=== PATIENT | male | born 1965 | race Caucasian/White ===

== ENCOUNTER → 2017-03-16 | Outpatient (CLI) | payer OTHER ==
--- NOTE | 2017-03-16 14:34 | EST ---
EXERCISE STRESS AGE: 51 SEX: M HT: 71" WT: 185 PROTOCOL: Marcus Stress Test STAGE: I DURATION OF EXERCISE: 4:31 HEART RATE REST: 114 BLOOD PRESSURE REST: 160/103 MAXIMUM HEART RATE ACHIEVED: 157 MAXIMUM BLOOD PRESSURE: 174/110 85% MPHR: 142 100% MPHR: 167 METS: 6.1 INDICATIONS: Chest pain. CLINICAL INFORMATION: Baseline heart rate 114 beats per minute. Baseline blood pressure 160/103 mmHg. Baseline 12-lead ECG showed sinus tachycardia with no definite ST T abnormalities. Patient exercised on a Marcus protocol for 4-1/2 minutes achieving a peak heart rate of 157 beats per minute. Peak blood pressure 174/110 mmHg. Patient complained of low back pain during the procedure. There was no ECG evidence for ischemia. No arrhythmias were noted. IMPRESSION: Low workload level achieved during stress test. No ECG evidence for ischemia. No arrhythmias. MMODL / IJN: [id number] /
== END | disposition home or self-care (01) ==
LOC: RADNMMAIN 10:25
PROVIDERS: ATTEND Internal Medicine
DX: R07.9 Chest pain, unspecified (principal); Z88.0 Allergy status to penicillin
CPT/HCPCS: 93017

== ENCOUNTER → 2021-08-28 | Outpatient (CLI) | payer OTHER ==
[2021-08-28 15:05] LABS: Basophils # (A) 0.06 X 10*3/uL (0.00-0.10); Basophils % (A) 0.7 %; Eosinophils # (A) 0.17 X 10*3/uL (0.04-0.35); HCT 41.5 % (39.6-50.0); HGB 13.9 g/dL (13.0-17.0); Immature Grans, Automated 0.2 %; Lymphocytes # (A) 3.15 X 10*3/uL (0.90-5.00); Lymphocytes % (A) 37.4 %; MCH 28.7 pg (27.0-32.0); MCHC 33.5 g/dL (32.0-37.0); MCV 85.6 fL (80.0-97.0); Mean Platelet Volume 12.2 fL (9.5-12.2); Monocytes # (A) 0.64 X 10*3/uL (0.20-1.00); Monocytes % (A) 7.6 %; NRBC Per 100 WBC 0 /100 WBCS (0.0-0.0); Neutrophils # (A) 4.39 X 10*3/uL (1.80-7.70); Neutrophils % (A) 52.1 %; Platelet Count 185 X 10*3/uL (140-440); RBC 4.85 X 10*6/uL (4.40-5.60); RDW 14.5 % (11.5-14.5); WBC 8.43 X 10*3/uL (4.50-10.00)
[2021-08-28 15:43] LABS: ALT 35 U/L (10-49); AST 27 U/L (14-35); African American GFR (CKD) 69.7 (60.0-200.0); Albumin 4.6 g/dL (3.8-4.9); Albumin/Globulin Ratio 1.84 (1.60-3.17); Alkaline Phosphatase 100 U/L (41-126); BUN/Creat Ratio 16.77 Ratio (12.00-20.00); Blood Urea Nitrogen 21.8 mg/dL (9.0-27.0); Calcium 9.5 mg/dL (8.7-10.3); Carbon Dioxide 22.3 mmol/L (20.0-27.5); Chloride 103 mmol/L (96-109); Chol/HDL Ratio 4.89 Ratio; Globulin 2.5 g/dL (1.6-3.3); Glucose 144 mg/dL (70-110); Non-African American GFR(CKD) 60.1 (60.0-200.0); Potassium 3.8 mmol/L (3.5-5.5); Sodium 141 mmol/L (135-145); Total Protein 7.1 g/dL (6.2-8.2)
== END | disposition home or self-care (01) ==
LOC: LABWHC1 10:52
PROVIDERS: ATTEND Family Medicine
DX: Z00.00 Encounter for general adult medical examination without abnormal findings (principal); Z12.5 Encounter for screening for malignant neoplasm of prostate; Z11.59 Encounter for screening for other viral diseases; E78.5 Hyperlipidemia, unspecified
CPT/HCPCS: 36415; 80053; 80061; 83036; 84153; 84439; 84443; 85025; 86803

== ENCOUNTER → 2021-12-04 | Outpatient (CLI) | payer OTHER ==
[2021-12-04 18:59] LABS: Basophils # (A) 0.05 X 10*3/uL (0.00-0.10); Basophils % (A) 0.6 %; Eosinophils % (A) 1.3 %; HGB 13.7 g/dL (13.0-17.0); Immature Grans, Automated 0.3 %; Lymphocytes # (A) 3.01 X 10*3/uL (0.90-5.00); Lymphocytes % (A) 38.6 %; MCHC 34.3 g/dL (32.0-37.0); MCV 87.7 fL (80.0-97.0); Mean Platelet Volume 12.7 fL (9.5-12.2); Monocytes # (A) 0.63 X 10*3/uL (0.20-1.00); Monocytes % (A) 8.1 %; NRBC Per 100 WBC 0 /100 WBCS (0.0-0.0); Neutrophils # (A) 3.99 X 10*3/uL (1.80-7.70); Neutrophils % (A) 51.1 %; Platelet Count 193 X 10*3/uL (140-440); RBC 4.56 X 10*6/uL (4.40-5.60); RDW 14.5 % (11.5-14.5)
[2021-12-04 19:18] LABS: ALT 35 U/L (10-49); AST 32 U/L (14-35); African American GFR (CKD) 68.4 (60.0-200.0); Albumin 4.6 g/dL (3.8-4.9); Alkaline Phosphatase 94 U/L (41-126); BUN/Creat Ratio 10.23 Ratio (12.00-20.00); Blood Urea Nitrogen 13.5 mg/dL (9.0-27.0); Calcium 9.6 mg/dL (8.7-10.3); Carbon Dioxide 24.9 mmol/L (20.0-27.5); Chloride 100 mmol/L (96-109); Chol/HDL Ratio 4.15 Ratio; Globulin 2.5 g/dL (1.6-3.3); Glucose 130 mg/dL (70-110); LDL Cholesterol,Calculated 68.5 mg/dL (0.0-131.0); Potassium 3.7 mmol/L (3.5-5.5); Sodium 138 mmol/L (135-145); Total Protein 7.1 g/dL (6.2-8.2)
== END | disposition home or self-care (01) ==
LOC: LABWHC1 11:32
PROVIDERS: ATTEND Family Medicine
DX: I10 Essential (primary) hypertension (principal); E11.65 Type 2 diabetes mellitus with hyperglycemia; E78.5 Hyperlipidemia, unspecified
CPT/HCPCS: 36415; 80053; 80061; 83036; 84439; 84443; 85025

== ENCOUNTER → 2022-02-19 | Outpatient (CLI) | payer OTHER ==
[2022-02-19 23:14] LABS: African American GFR (CKD) 69.7 (60.0-200.0); Albumin 4.6 g/dL (3.8-4.9); Albumin/Globulin Ratio 1.53 (1.60-3.17); Anion Gap 11.8 mmol/L (10.00-18.00); BUN/Creat Ratio 19.77 Ratio (12.00-20.00); Blood Urea Nitrogen 25.7 mg/dL (9.0-27.0); Calcium 10.3 mg/dL (8.7-10.3); Carbon Dioxide 24.2 mmol/L (20.0-27.5); Non-African American GFR(CKD) 60.1 (60.0-200.0); Potassium 3.7 mmol/L (3.5-5.5); Total Bilirubin 0.2 mg/dL (0.30-1.20); Total Protein 7.6 g/dL (6.2-8.2)
== END | disposition home or self-care (01) ==
LOC: LABWHC1 16:35
PROVIDERS: ATTEND Family Medicine
DX: E11.65 Type 2 diabetes mellitus with hyperglycemia (principal)
CPT/HCPCS: 36415; 80053; 83036

== ENCOUNTER → 2022-08-22 | Outpatient (CLI) | payer OTHER ==
[2022-08-23 08:12] LABS: Basophils # (A) 0.09 X 10*3/uL (0.00-0.10); Eosinophils # (A) 0.19 X 10*3/uL (0.04-0.35); Eosinophils % (A) 2.1 %; HCT 41.6 % (39.6-50.0); Lymphocytes # (A) 2.39 X 10*3/uL (0.90-5.00); Lymphocytes % (A) 26.4 %; MCH 29.3 pg (27.0-32.0); MCHC 33.7 d/dL (32.0-37.0); Mean Platelet Volume 12.7 FL (9.5-12.2); Monocytes % (A) 6.6 %; NRBC Per 100 WBC 0 X 10*3/uL (0.00-0.01); Neutrophils # (A) 5.77 X 10*3/uL (1.80-7.70); Neutrophils % (A) 63.6 %; Platelet Count 255 X 10*3/uL (140-440); RBC 4.78 X 10*6/uL (4.40-5.60); RDW 12.6 % (11.5-14.5); WBC 9.07 X 10*3/uL (4.50-10.00)
[2022-08-23 08:28] LABS: ALT 23 U/L (10-49); AST 16 U/L (14-35); Albumin 4.2 d/dL (3.8-4.9); Albumin/Globulin Ratio 1.56 Ratio (1.60-3.17); Alkaline Phosphatase 125 U/L (41-126); Blood Urea Nitrogen 14.3 mg/dL (9.0-27.0); Calcium 10.1 mg/dL (8.7-10.3); Carbon Dioxide 27.1 mmol/L (21.6-31.8); Chloride 93 mmol/L (96-109); Chol/HDL Ratio 4.89 Ratio; Globulin 2.7 d/dL (1.6-3.3); Glucose 361 mg/dL (70-110); LDL Cholesterol,Calculated 48.3 mg/dL (0.0-131.0); Potassium 4.2 mmol/L (3.5-5.5); Sodium 133 mmol/L (135-145); Total Bilirubin 0.4 mg/dL (0.3-1.2); Total Protein 6.9 d/dL (6.2-8.2)
[2022-08-23 09:58] LABS: Urine Creatinine 24.3 mg/dL (39.0-259.0)
== END | disposition home or self-care (01) ==
LOC: LABWHC1 11:25
PROVIDERS: ATTEND Family Medicine
DX: Z12.5 Encounter for screening for malignant neoplasm of prostate (principal); E11.65 Type 2 diabetes mellitus with hyperglycemia
CPT/HCPCS: 36415; 80053; 80061; 82043; 82570; 83036; 84153; 85025

== ENCOUNTER 2022-08-28 09:09 | Emergency (ER) | payer OTHER ==
--- NOTE | 2022-08-28 09:41 | ED ---
ENT HPI - General Chief complaint: Dental/Oral Stated complaint: dental pain Time Seen by Provider: 08/28/22 09:19 Source: patient, RN notes reviewed Mode of arrival: ambulatory Limitations: no limitations - History of Present Illness Initial comments: This is a 57-year-old male who presents to the emergency department for dental pain. Patient states that 2.5 weeks ago, he started to develop an abscess from the teeth in the front of his lower jaw. States that this usually happens about once a year but resolves on its own. This time, the swelling persisted and he saw his dentist. His dentist had him on clindamycin that he essentially doubled the dose of for 2 weeks. He took his last dose yesterday. His dentist also tried to drain it and was able to express some material. However, the patient states that this abscess continues to persist. He is unable to see the oral surgeon until 11/11, however he was told by oral surgery that they would not manage the abscess, and only pull his teeth, which he does not want. While the area is tender to the touch, he is still able to eat without difficulty. He is only treating his pain with ibuprofen at this point, which has not been very helpful. Denies any fevers, chills, sore throat, cough, dyspnea, chest pain, palpitations, abdominal pain, nausea, vomiting, diarrhea, back pain, or headaches. MD complaint: tooth pain Onset/Timin -: week(s) - Related Data Home Medications Medication Instructions Recorded Confirmed Azithromycin [Zithromax Z-pack] 1 tab PO DIRECTED 12/11/14 12/13/14 Cyclobenzaprine [Flexeril] 10 mg PO DAILY@0000,1200 12/11/14 12/11/14 HYDROcodone/APAP 7.5-325MG [[place] 1 each PO DIRECTED PRN 12/11/14 12/13/14 7.5-325] Losartan Potassium 100 mg PO DAILY@12/11/14 12/13/14 Meloxicam [Mobic] 7.5 mg PO DAILY@1200,0000 12/11/14 12/13/14 Metoprolol 100mg 100 mg PO DAILY@0000 12/11/14 12/11/14 Omeprazole [PriLOSEC] 20 mg PO DAILY@0000 12/11/14 12/11/14 amLODIPine [Norvasc] 10 mg PO DAILY@0000 12/11/14 12/13/14 Previous Rx's Medication Instructions Recorded Ketorolac [Toradol] 10 mg PO Q6HR PRN #12 tab 08/28/22 Allergies Allergy/AdvReac Type Severity Reaction Status Date / Time Penicillins AdvReac Severe Swelling Verified 08/28/22 09:16 Review of Systems ROS Statement: Those systems with pertinent positive or pertinent negative responses have been documented in the HPI. ROS Other: All systems not noted in ROS Statement are negative. 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 PT TO NOTIFY DR CASTILLO IF NOT IMPROVED BY TOMORROW 12/12/14. History of Any Multi-Drug Resistant Organisms: None Reported Past Surgical History: No Surgical Hx Reported Additional Past Anesthesia/Blood Transfusion Reaction / Comment(s): PT HAS NEVER RECEIVED ANESTHESIA. Past Psychological History: No Psychological Hx Reported Smoking Status: Current every day smoker Past Alcohol Use History: Daily Past Drug Use History: None Reported - Past Family History Father Family Medical History: Cancer Additional Family Medical History / Comment(s): MELANOMA General Exam Limitations: no limitations General appearance: alert, in no apparent distress Head exam: Present: atraumatic, normocephalic, normal inspection ENT exam: Present: other (Palpable dental abscess to the teeth on the left front side of his lower jaw) Respiratory exam: Present: normal lung sounds bilaterally. Absent: respiratory distress, wheezes, rales, rhonchi, stridor Cardiovascular Exam: Present: regular rate, normal rhythm, normal heart sounds. Absent: systolic murmur, diastolic murmur, rubs, gallop, clicks Neurological exam: Present: alert, oriented X3, CN II-XII intact Psychiatric exam: Present: normal affect, normal mood Skin exam: Present: warm, dry, intact, normal color. Absent: rash Course Vital Signs 08/28/22 08/28/22 09:10 11:12 Temperature 98.3 F 97.9 F Pulse Rate 85 74 Respiratory 20 16 Rate Blood Pressure 137/87 138/91 O2 Sat by Pulse 99 98 Oximetry Procedures - Incision & Drainage Consent Obtained: verbal consent Indication: Dental abscess Scalpel Used: #11 Needle Aspiration Performed?: No Irrigation Performed?: Yes I&D Drainage Obtained: Pus, Blood Medical Decision Making - Medical Decision Making This is a 57-year-old male who presents to the emergency department for dental pain. Was pt. sent in by a medical professional or institution? @ -No Did you speak to anyone other than the patient for history? @ -No Did you review nursing and triage notes? @ -Yes, and I agree, it is accurate with regards to the patient's symptoms. Were old charts reviewed? @ -No Differential Diagnosis? @ -Differential Dental Pain: Dental abscess, chipped tooth, dental carries, dede's angina, trigeminal neuralgia, this is not meant to be an all-inclusive list. EKG interpreted by me (3pts min.)? @ -Not obtained X-rays interpreted by me (1pt min.)? @ -Not obtained CT interpreted by me (1pt min.)? @ -Not obtained U/S interpreted by me (1pt. min.)? @ -Not obtained What testing was considered but not performed? (CT, X-rays, U/S, labs)? Why? @ -None What meds were considered but not given? Why? @ -None Did you discuss the management of the patient with other professionals? @ -No Did you reconcile home meds? @ -No Was smoking cessation discussed for >3mins.? @ -No Was critical care preformed (if so, how long)? @ -No Were there social determinants of health that impacted care today? How? (Homelessness, low income, unemployed, alcoholism, drug addiction, transportation, low edu. Level, literacy, decrease access to med. care, [facility], rehab)? @ -No Was there de-escalation of care discussed even if they declined? (Discuss DNR or withdrawal of care, Hospice)? @ -No What co-morbidities impacted this encounter? (DM, HTN, Smoking, COPD, CAD, Cancer, CVA, Hep., AIDS, mental health diagnosis, sleep apnea, morbid obesity)? @ -None Was patient admitted / discharged? @ -Discharged. There was a somewhat palpable abscess on exam with purulent drainage coming around one of the teeth. Hurricane spray was applied as a local anesthetic and I was able to lightly stick the area with an 11 blade and express some more purulent drainage. However, the majority of the abscess was much deeper and I advised the patient that given the depth of the larger portion of the abscess, this is not something that we can drain in the emergency department. 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 Advised that because this is a dental abscess, I am not sure if this is something they would do, however he can contact them to discuss this. Prescription for Toradol provided with dosing instructions reviewed. Advised that he can see if this is more beneficial than ibuprofen has been. Patient is instructed to take the Toradol with Tylenol if needed and avoid any other [id number] anti-inflammatories such as ibuprofen with the Toradol. Undiagnosed new problem with uncertain prognosis? @ -None Drug Therapy requiring intensive monitoring for toxicity (Heparin, Nitro, Insulin, Cardizem)? @ -None Were any procedures done? @ -Yes I&D of dental abscess Diagnosis/symptom? @ -Dental abscess Acute, or Chronic, or Acute on Chronic? @ -Acute Uncomplicated (without systemic symptoms) or Complicated (systemic symptoms)? @ -Uncomplicated Side effects of treatment? @ -None Exacerbation, Progression, or Severe Exacerbation] @ -Not applicable Poses a threat to life or bodily function? @ -No Return precautions reviewed in depth, the patient is instructed to return to the emergency department with any new, worsening, or concerning symptoms. Patient verbalized understanding. This case was discussed in detail with the attending ED physician, Dr. Armstrong. Presentation, findings, and treatment plan discussed in detail as well. Disposition Clinical Impression: Dental abscess Disposition: HOME SELF-CARE Instructions (If sedation given, give patient instructions): Dental Abscess (ED) Additional Instructions: Return to the emergency department with any new, worsening, or concerning symptoms. Take the Toradol up to every 6 hours as needed for pain relief. Take this instead of the ibuprofen. You may take it with Tylenol if needed. Follow up with your primary care provider in 1-2 days. Contact dermatology as listed below for a follow up appointment. Prescriptions: Ketorolac [Toradol] 10 mg PO Q6HR PRN #12 tab PRN Reason: Pain Is patient prescribed a controlled substance at d/c from ED?: No Referrals: Ravinder Gomez MD [Primary Care Provider] - 1-2 days Quincy Gill MD [STAFF PHYSICIAN] - 1-2 days
[2022-08-28] MEDS ORDERED: BENZOCAINE SPRAY 1 CAN MUCOUS MEM ONE ×2 (09:47→10:00)
[2022-08-28] MEDS ORDERED: HYDROcodone/APAP 5-325MG 1 EACH TAB PO STA (10:11)
[2022-08-28] MEDS ORDERED: KETOROLAC 15 MG/ML 1 ML VIAL IM STA (10:11)
[2022-08-28] MEDS ORDERED: ACET/COD 300 MG/30 MG STARTER PACK 6 TAB BTL PO STA (10:18)
[2022-08-28 11:15] VITALS: BP 138/91; PULSE 74; RESP 16; TEMP 97.9
== END 2022-08-28 11:15 | disposition home or self-care (01) ==
LOC: EC 09:09
DX: K04.7 Periapical abscess without sinus (principal); I10 Essential (primary) hypertension; F17.200 Nicotine dependence, unspecified, uncomplicated; Z79.899 Other long term (current) drug therapy; Z88.0 Allergy status to penicillin
CPT/HCPCS: 99283; 96372; 10060; J1885

== ENCOUNTER → 2023-03-01 | Outpatient (CLI) | payer OTHER ==
[2023-03-01 16:44] LABS: ALT 20 U/L (10-49); AST 18 U/L (14-35); Albumin 4.4 g/dL (3.8-4.9); Albumin/Globulin Ratio 1.69 Ratio (1.60-3.17); Alkaline Phosphatase 94 U/L (41-126); BUN/Creat Ratio 17.92 Ratio (12.00-20.00); Blood Urea Nitrogen 23.3 mg/dL (9.0-27.0); Calcium 10.2 mg/dL (8.7-10.3); Carbon Dioxide 25.1 mmol/L (21.6-31.8); Chloride 102 mmol/L (96-109); Globulin 2.6 g/dL (1.6-3.3); Glucose 111 mg/dL (70-110); Potassium 4.1 mmol/L (3.5-5.5); Sodium 140 mmol/L (135-145); Total Bilirubin 0.3 mg/dL (0.3-1.2)
== END | disposition home or self-care (01) ==
LOC: LABWHC1 08:44
PROVIDERS: ATTEND Family Medicine
DX: E11.65 Type 2 diabetes mellitus with hyperglycemia (principal)
CPT/HCPCS: 36415; 80053; 83036

== ENCOUNTER 2023-11-22 10:53 | Emergency (ER) | payer OTHER ==
[2023-11-22 11:01] VITALS: RESP 16; TEMP 97.9
[2023-11-22 11:11] LABS: Glucose,Whole Blood 128 mg/dL (70-110)
--- NOTE | 2023-11-22 11:57 | XR ---
EXAMINATION TYPE: XR chest 2V DATE OF EXAM: 11/22/2023 11:52 AM CLINICAL INDICATION: Male, 58 years old with history of Dizziness; [facility] COMPARISON: None TECHNIQUE: XR chest 2V Frontal view of the chest. FINDINGS: Lungs/Pleura: There is no evidence of pleural effusion, focal consolidation, or pneumothorax. Pulmonary vascularity: Unremarkable. Heart/mediastinum: Cardiomediastinal silhouette is unremarkable. Musculoskeletal: No acute osseous pathology. IMPRESSION: No acute cardiopulmonary disease/process.
[2023-11-22 12:15] LABS: ALT 17 U/L (4-49); AST 23 U/L (17-59); African American GFR (CKD) 67 (>60 ml/min/1.73 sqM); Albumin 3.9 g/dL (3.5-5.0); Alkaline Phosphatase 70 U/L (38-126); Anion Gap 6 mmol/L; Blood Urea Nitrogen 15 mg/dL (9-20); Calcium 9.2 mg/dL (8.4-10.2); Carbon Dioxide 27 mmol/L (22-30); Chloride 105 mmol/L (98-107); Glucose 121 mg/dL (74-99); Non-African American GFR(CKD) 58 (>60 ml/min/1.73 sqM); Potassium 3.9 mmol/L (3.5-5.1); Sodium 138 mmol/L (137-145); Total Bilirubin 0.5 mg/dL (0.2-1.3); Total Protein 6.6 g/dL (6.3-8.2)
[2023-11-22 12:16] LABS: Basophils # (A) 0.1 k/uL (0-0.2); Basophils % (A) 1 %; Eosinophils # (A) 0.2 k/uL (0-0.7); Eosinophils % (A) 3 %; HCT 39.5 % (39.0-53.0); HGB 12.8 gm/dL (13.0-17.5); INR 0.9 (<1.2); Lymphocytes # (A) 2.5 k/uL (1.0-4.8); Lymphocytes % (A) 33 %; MCH 27.5 pg (25.0-35.0); MCHC 32.6 g/dL (31.0-37.0); MCV 84.5 fL (80.0-100.0); Mean Platelet Volume 9.3; Monocytes % (A) 13 %; Neutrophils # (A) 3.5 k/uL (1.3-7.7); Neutrophils % (A) 46 %; Platelet Count 209 k/uL (150-450); Prothrombin Time 10.1 sec (10.0-12.5); RBC 4.67 m/uL (4.30-5.90); RDW 14.9 % (11.5-15.5); WBC 7.6 k/uL (3.8-10.6)
[2023-11-22] MEDS: SODIUM CHLORIDE 0.9% 1,000 ML IV STA (12:20)
--- NOTE | 2023-11-22 12:20 | ED ---
Recheck HPI - General Chief Complaint: Recheck/Abnormal Lab/Rx Stated Complaint: EKG done PCP referral Time Seen by Provider: 11/22/23 11:14 Source: patient, RN notes reviewed Mode of arrival: ambulatory Limitations: no limitations - History of Present Illness Initial Comments: This is a 58-year-old male who presents to the emergency department for an ab normal EKG. States that 2 days ago he had an episode of dizziness lasting around 30 seconds to a minute. States that this was like a room spinning sensation. Denies any shortness of breath or chest pain during this episode. The episode then resolved and he has felt fine since. He has not had this happen before. He saw his primary care provider today as part of his routine wellness check. They did an EKG and he was told that it was abnormal and to come to the emergency department. Patient states that he currently feels fine. - Related Data Home Medications Medication Instructions Recorded Confirmed Azithromycin [Zithromax Z-pack] 1 tab PO DIRECTED 12/11/14 12/13/14 Cyclobenzaprine [Flexeril] 10 mg PO DAILY@0000,1200 12/11/14 12/11/14 HYDROcodone/APAP 7.5-325MG [[place] 1 each PO DIRECTED PRN 12/11/14 12/13/14 7.5-325] Losartan Potassium 100 mg PO DAILY@0000 12/11/14 12/13/14 Meloxicam [Mobic] 7.5 mg PO DAILY@1200,0000 12/11/14 12/13/14 Metoprolol 100mg 100 mg PO DAILY@0000 12/11/14 12/11/14 Omeprazole [PriLOSEC] 20 mg PO DAILY@0000 12/11/14 12/11/14 amLODIPine [Norvasc] 10 mg PO DAILY@0000 12/11/14 12/13/14 Previous Rx's Medication Instructions Recorded Ketorolac [Toradol] 10 mg PO Q6HR PRN #12 tab 08/28/22 Allergies Allergy/AdvReac Type Severity Reaction Status Date / Time Penicillins AdvReac Severe Swelling Verified 11/22/23 10:59 Review of Systems ROS Statement: Those systems with pertinent positive or pertinent negative responses have been documented in the HPI. ROS Other: All systems not noted in ROS Statement are negative. Past Medical History Past Medical History: Hypertension, Musculoskeletal Disorder Additional Past Medical History / Comment(s): LOWER BACK PAIN W/2 BULDGING DISCS, HAS ONLY 1 KIDNEY (LEFT), RECENT TOOTH ACHE AND TAKING Z-PAC. PT TO NOTIFY DR CASTILLO IF NOT IMPROVED BY TOMORROW 12/12/14. History of Any Multi-Drug Resistant Organisms: None Reported Past Surgical History: No Surgical Hx Reported Additional Past Anesthesia/Blood Transfusion Reaction / Comment(s): PT HAS NEVER RECEIVED ANESTHESIA. Past Psychological History: No Psychological Hx Reported Smoking Status: Current every day smoker Past Alcohol Use History: Daily Past Drug Use History: None Reported - Past Family History Father Family Medical History: Cancer Additional Family Medical History / Comment(s): MELANOMA General Exam Limitations: no limitations General appearance: alert, in no apparent distress Head exam: Present: atraumatic, normocephalic, normal inspection Respiratory exam: Present: normal lung sounds bilaterally. Absent: respiratory distress, wheezes, rales, rhonchi, stridor Cardiovascular Exam: Present: regular rate, normal rhythm, normal heart sounds. Absent: systolic murmur, diastolic murmur, rubs, gallop, clicks Neurological exam: Present: alert, oriented X3, CN II-XII intact Psychiatric exam: Present: normal affect, normal mood Skin exam: Present: warm, dry, intact, normal color. Absent: rash Course Vital Signs 11/22/23 11/22/23 10:57 13:20 Temperature 97.9 F Pulse Rate 88 78 Respiratory 16 16 Rate Blood Pressure 126/86 158/93 O2 Sat by Pulse 96 94 L Oximetry Medical Decision Making - Medical Decision Making This is a 58 year old male who presents to the emergency department for an abnormal EKG. Was pt. sent in by a medical professional or institution? @ -His PCP Did you speak to anyone other than the patient for history? @ -No Did you review nursing and triage notes? @ -Yes, and I agree, it is accurate with regards to the patient's symptoms. Were old charts reviewed? @ -No Differential Diagnosis? @ -Differential abnormal EKG: VT, old cardiac issues, artifact, pericarditis, electrolyte abnormality, this is not meant to be an all-inclusive list. EKG interpreted by me (3pts min.)? @ -EKG interpreted by me demonstrating the following: Sinus rhythm. Ventricular rate 82 bpm, MD interval 182 ms, QRS duration 90 ms, QTc 385 ms. X-rays interpreted by me (1pt min.)? @ -Chest x-ray obtained, my interpretation identifies no localized consolidations or infiltrates. CT interpreted by me (1pt min.)? @ -Not obtained U/S interpreted by me (1pt. min.)? @ -Not obtained What testing was considered but not performed? (CT, X-rays, U/S, labs)? Why? @ -None What meds were considered but not given? Why? @ -None Did you discuss the management of the patient with other professionals? @ -No Did you reconcile home meds? @ -No Was smoking cessation discussed for >3mins.? @ -I discussed smoking cessation for greater than 3 minutes. The risk of smoking were discussed with the patient including but not limited to risks of cancer, stroke, coronary artery disease and COPD. Also discussed with patient were multiple methods of quitting smoking. Lastly we discussed the financial cost of smoking. Was critical care preformed (if so, how long)? @ -No Were there social determinants of health that impacted care today? How? (Homelessness, low income, unemployed, alcoholism, drug addiction, transportation, low edu. Level, literacy, decrease access to med. care, intermediate, rehab)? @ -No Was there de-escalation of care discussed even if they declined? (Discuss DNR or withdrawal of care, Hospice)? @ -No What co-morbidities impacted this encounter? (DM, HTN, Smoking, COPD, CAD, Cancer, CVA, Hep., AIDS, mental health diagnosis, sleep apnea, morbid obesity)? @ -Smoking, HTN Was patient admitted / discharged? @ -Discharged. Lab work unremarkable including a negative troponin. Chest x- ray reveals no acute process. Patient had some Q waves on his EKG, however there were no acute abnormalities noted. Patient was also asymptomatic while he was here and he did not exhibit any chest pain or shortness of breath at any point. Patient was able to be discharged home and advised to have follow-up with his primary care provider for further evaluation. Case discussed with ED attending Dr. Gastelum. Return precautions reviewed in depth, the patient is instructed to return to the emergency department with any new, worsening, or concerning symptoms. Patient verbalized understanding. Undiagnosed new problem with uncertain prognosis? @ -None Drug Therapy requiring intensive monitoring for toxicity (Heparin, Nitro, Insulin, Cardizem)? @ -None Were any procedures done? @ -None Diagnosis/symptom? @ -Dizziness, abnormal EKG Acute, or Chronic, or Acute on Chronic? @ -Acute Uncomplicated (without systemic symptoms) or Complicated (systemic symptoms)? @ -Uncomplicated Side effects of treatment? @ -None Exacerbation, Progression, or Severe Exacerbation] @ -Not applicable Poses a threat to life or bodily function? @ -This will depend on the cause - Lab Data Result diagrams: 11/22/23 11:36 11/22/23 11:36 Lab Results 11/22/23 11/22/23 11/22/23 Range/Units 11:10 11:36 11:36 WBC 7.6 (3.8-10.6) k/uL RBC 4.67 (4.30-5.90) m/uL Hgb 12.8 L (13.0-17.5) gm/dL Hct 39.5 (39.0-53.0) % MCV 84.5 (80.0-100.0) fL MCH 27.5 (25.0-35.0) pg MCHC 32.6 (31.0-37.0) g/dL RDW 14.9 (11.5-15.5) % Plt Count 209 (150-450) k/uL MPV 9.3 Neutrophils % 46 % Lymphocytes % 33 % Monocytes % 13 % Eosinophils % 3 % Basophils % 1 % Neutrophils # 3.5 (1.3-7.7) k/uL Lymphocytes # 2.5 (1.0-4.8) k/uL Monocytes # 1.0 (0-1.0) k/uL Eosinophils # 0.2 (0-0.7) k/uL Basophils # 0.1 (0-0.2) k/uL PT 10.1 (10.0-12.5) sec INR 0.9 (<1.2) Sodium (137-145) mmol/L Potassium (3.5-5.1) mmol/L Chloride (98-107) mmol/L Carbon Dioxide (22-30) mmol/L Anion Gap mmol/L BUN (9-20) mg/dL Creatinine (0.66-1.25) mg/dL Est GFR (CKD-EPI)AfAm (>60 ml/min/1.73 sqM) Est GFR (CKD-EPI)NonAf (>60 ml/min/1.73 sqM) Glucose (74-99) mg/dL POC Glucose (mg/dL) 128 H (70-110) mg/dL POC Glu Cold [employer] Worker Manan Hardin Calcium (8.4-10.2) mg/dL Total Bilirubin (0.2-1.3) mg/dL AST (17-59) U/L ALT (4-49) U/L Alkaline Phosphatase (38-126) U/L Troponin I (0.000-0.034) ng/mL Total Protein (6.3-8.2) g/dL Albumin (3.5-5.0) g/dL 11/22/23 11/22/23 Range/Units 11:36 11:36 WBC (3.8-10.6) k/uL RBC (4.30-5.90) m/uL Hgb (13.0-17.5) gm/dL Hct (39.0-53.0) % MCV (80.0-100.0) fL MCH (25.0-35.0) pg MCHC (31.0-37.0) g/dL RDW (11.5-15.5) % Plt Count (150-450) k/uL MPV Neutrophils % % Lymphocytes % % Monocytes % % Eosinophils % % Basophils % % Neutrophils # (1.3-7.7) k/uL Lymphocytes # (1.0-4.8) k/uL Monocytes # (0-1.0) k/uL Eosinophils # (0-0.7) k/uL Basophils # (0-0.2) k/uL PT (10.0-12.5) sec INR (<1.2) Sodium 138 (137-145) mmol/L Potassium 3.9 (3.5-5.1) mmol/L Chloride 105 (98-107) mmol/L Carbon Dioxide 27 (22-30) mmol/L Anion Gap 6 mmol/L BUN 15 (9-20) mg/dL Creatinine 1.33 H (0.66-1.25) mg/dL Est GFR (CKD-EPI)AfAm 67 (>60 ml/min/1.73 sqM) Est GFR (CKD-EPI)NonAf 58 (>60 ml/min/1.73 sqM) Glucose 121 H (74-99) mg/dL POC Glucose (mg/dL) (70-110) mg/dL POC Glu Cold Storage Worker ID Calcium 9.2 (8.4-10.2) mg/dL Total Bilirubin 0.5 (0.2-1.3) mg/dL AST 23 (17-59) U/L ALT 17 (4-49) U/L Alkaline Phosphatase 70 (38-126) U/L Troponin I <0.012 (0.000-0.034) ng/mL Total Protein 6.6 (6.3-8.2) g/dL Albumin 3.9 (3.5-5.0) g/dL - Radiology Data Radiology results: report reviewed, image reviewed Disposition Clinical Impression: Dizziness, Abnormal EKG Disposition: HOME SELF-CARE Instructions (If sedation given, give patient instructions): Vertigo (ED), Dizziness (ED) Additional Instructions: Return to the emergency department with any new, worsening, or concerning symptoms. Follow up with your primary care provider in 1-2 days. Is patient prescribed a controlled substance at d/c from ED?: No Referrals: Ravinder Gomez MD [Primary Care Provider] - 1-2 days Time of Disposition: 12:38
[2023-11-22 13:20] VITALS: BP 158/93; PULSE 78
== END 2023-11-22 13:20 | disposition home or self-care (01) ==
LOC: EC 10:53
CPT/HCPCS: 36415; 71046; 80053; 84484; 85025; 85610; 93005; 96360; 99284

== ENCOUNTER → 2023-11-27 | Outpatient (CLI) | payer OTHER ==
--- NOTE | 2023-11-27 10:48 | XR ---
EXAMINATION TYPE: XR ankle complete LT DATE OF EXAM: 11/27/2023 10:35 AM CLINICAL INDICATION: Male, 58 years old with history of M25.572 PAIN IN LEFT ANKLE AND JOINTS OF LEFT FOOT; [facility] COMPARISON: None TECHNIQUE: XR ankle complete LT; ankle is imaged in frontal, lateral and oblique projections. FINDINGS/IMPRESSION: 1. Spiral distal fibular fracture with soft tissue swelling. 2. Tibia appears intact.
== END | disposition home or self-care (01) ==
LOC: RADXRMAIN 10:14
PROVIDERS: ATTEND Family Medicine
DX: M25.572 Pain in left ankle and joints of left foot

== ENCOUNTER 2024-03-14 12:23 | Emergency (ER) | payer OTHER ==
--- NOTE | 2024-03-14 13:36 | ED ---
General Adult HPI - General Source: patient, RN notes reviewed Mode of arrival: ambulatory Limitations: no limitations <Francine Henderson - Last Filed: 03/14/24 13:34> - General Source: patient, RN notes reviewed, old records reviewed Mode of arrival: ambulatory Limitations: no limitations - History of Present Illness -: days(s) (3) Quality: aching Consistency: intermittent Improves with: none Worsens with: none Associated Symptoms: denies other symptoms Treatments Prior to Arrival: none <Estevan Dean - Last Filed: 03/20/24 23:13> - General Chief complaint: Urogenital Stated complaint: Urogenital issues Time Seen by Provider: 03/14/24 12:38 - History of Present Illness Initial comments: Barry britton is a 58-year-old male with a history of 1 kidney presenting to the emergency department plaint of hematuria over the past 3 days. States that he has been experiencing dysuria and suprapubic tenderness. Patient denies history of nephrolithiasis, pyelonephritis. Denies fevers, chills, nausea, v omiting. Denies previous surgical urological history (Francine Henderson) This is a 4-year-old male to ER for evaluation of blood in the urine for 3 days and abdominal pain (Estevan Dean) - Related Data Home Medications Medication Instructions Recorded Confirmed Cyclobenzaprine [Flexeril] 10 mg PO HS 12/11/14 03/14/24 HYDROcodone/APAP 7.5-325MG [[place] 1 tab PO BID PRN 12/11/14 03/14/24 7.5-325] Omeprazole [PriLOSEC] 20 mg PO BID 12/11/14 03/14/24 amLODIPine [Norvasc] 10 mg PO DAILY 12/11/14 03/14/24 Atorvastatin [Lipitor] 40 mg PO DAILY 03/14/24 03/14/24 DULoxetine HCL [Cymbalta] 60 mg PO DAILY 03/14/24 03/14/24 Dulaglutide [Trulicity] 3 mg SQ WE 03/14/24 03/14/24 Empagliflozin [Jardiance] 25 mg PO DAILY 03/14/24 03/14/24 Losartan/Hydrochlorothiazide 1 tab PO DAILY 03/14/24 03/14/24 [Losartan-Hctz 100-12.5 mg Tab] Metoprolol Succinate (ER) [Toprol 100 mg PO DAILY 03/14/24 03/14/24 XL] Pregabalin [Lyrica] 150 mg PO TID 03/14/24 03/14/24 metFORMIN HCL [Glucophage] 500 mg PO DAILY 03/14/24 03/14/24 rOPINIRole HCL [Requip] 0.5 mg PO HS 03/14/24 03/14/24 Previous Rx's Medication Instructions Recorded Cephalexin [Keflex] 500 mg PO Q6HR #28 cap 03/14/24 Allergies Allergy/AdvReac Type Severity Reaction Status Date / Time Penicillins AdvReac Severe Swelling Verified 03/14/24 18:17 Review of Systems ROS Other: All systems not noted in ROS Statement are negative. <Francine Henderson - Last Filed: 03/14/24 13:34> ROS Other: All systems not noted in ROS Statement are negative. <Estevan Dean - Last Filed: 03/20/24 23:13> ROS Statement: Those systems with pertinent positive or pertinent negative responses have been documented in the HPI. Past Medical History Past Medical History: Hypertension, Musculoskeletal Disorder Additional Past Medical History / Comment(s): LOWER BACK PAIN W/2 BULDGING DISCS, HAS ONLY 1 KIDNEY (LEFT), RECENT TOOTH ACHE AND TAKING Z-PAC. PT TO NOTIFY DR CASTILLO IF NOT IMPROVED BY TOMORROW 12/12/14. History of Any Multi-Drug Resistant Organisms: None Reported Past Surgical History: No Surgical Hx Reported Additional Past Anesthesia/Blood Transfusion Reaction / Comment(s): PT HAS NEVER RECEIVED ANESTHESIA. Past Psychological History: No Psychological Hx Reported Smoking Status: Current every day smoker Past Alcohol Use History: Daily Past Drug Use History: Marijuana - Past Family History Father Family Medical History: Cancer Additional Family Medical History / Comment(s): MELANOMA <Francine Henderson - Last Filed: 03/14/24 13:34> General Exam Limitations: no limitations <Francine Henderson - Last Filed: 03/14/24 13:34> General appearance: alert, in no apparent distress Head exam: Present: atraumatic, normocephalic, normal inspection Eye exam: Present: normal appearance, PERRL, EOMI. Absent: scleral icterus, conjunctival injection, periorbital swelling ENT exam: Present: normal exam, mucous membranes moist Neck exam: Present: normal inspection. Absent: tenderness, meningismus, lymphadenopathy Respiratory exam: Present: normal lung sounds bilaterally. Absent: respiratory distress, wheezes, rales, rhonchi, stridor Cardiovascular Exam: Present: regular rate, normal rhythm, normal heart sounds. Absent: systolic murmur, diastolic murmur, rubs, gallop, clicks GI/Abdominal exam: Present: soft, normal bowel sounds. Absent: distended, tenderness, guarding, rebound, rigid Extremities exam: Present: normal inspection, full ROM, normal capillary refill. Absent: tenderness, pedal edema, joint swelling, calf tenderness Back exam: Present: normal inspection Neurological exam: Present: alert, oriented X3, CN II-XII intact Psychiatric exam: Present: normal affect, normal mood Skin exam: Present: warm, dry, intact, normal color. Absent: rash <Estevan Dean - Last Filed: 03/20/24 23:13> - General Exam Comments Initial Comments: Visual Physical Exam Vital signs reviewed General: Well-appearing, nontoxic, no acute distress. Head: Normocephalic, atraumatic Eyes: PERRLA, EOMI ENT: Airway patent Chest: Nonlabored breathing Skin: No visual rash, normal skin tone Neuro: Alert and oriented 3 Musculoskeletal: No gross abnormalities (Stieler,Francine) Course <Estevan Dean - Last Filed: 03/20/24 23:13> Vital Signs 03/14/24 03/14/24 12:39 19:04 Temperature 97.7 F 98.8 F Pulse Rate 84 76 Respiratory 18 19 Rate Blood Pressure 134/88 136/87 O2 Sat by Pulse 97 97 Oximetry - Reevaluation(s) Reevaluation #1: Medical records reviewed (Estevan Dean) Reevaluation #2: Patient symptoms unchanged (Estevan Dean) Reevaluation #3: Patient informed of results and questions answered (Estevan Dean) Reevaluation #4: Was pt. sent in by a medical professional or institution (, PA, WATCH ASSEMBLER, urgent care, hospital, or [facility]...) When possible be specific @ -no Did you speak to anyone other than the patient for history (EMS, parent, family, police, friend...)? What history was obtained from this source @ -no Did you review nursing and triage notes (agree or disagree)? Why? @ -agree Are old charts reviewed (outside hosp., previous admission, EMS record, old EKG, old radiological studies, urgent care reports/EKG's, [facility] records)? Report findings @ -yes Differential Diagnosis (chest pain, altered mental status, abdominal pain women, abdominal pain men, vaginal bleeding, weakness, fever, dyspnea, syncope, headache, dizziness, GI bleed, back pain, seizure, CVA, palpatations, mental health, musculoskeletal)? @ -prior EKG interpreted by me (3pts min.). @ -no X-rays interpreted by me (1pt min.). @ -no CT interpreted by me (1pt min.). @ -Yes positive for likely cancer U/S interpreted by me (1pt. min.). @ -no What testing was considered but not performed or refused? (CT, X-rays, U/S, labs)? Why? @ -none What meds were considered but not given or refused? Why? @ -none Did you discuss the management of the patient with other professionals (professionals i.e. , PA, WATCH ASSEMBLER, lab, RT, psych nurse, social services specialist, vp security, teacher, school resource officer, bilingual case manager)? Give summary @ -no Was smoking cessation discussed for >3mins.? @ -no Was critical care preformed (if so, how long)? @ -no Were there social determinants of health that impacted care today? How? (Homelessness, low income, unemployed, alcoholism, drug addiction, transportation, low edu. Level, literacy, decrease access to med. care, care home, rehab)? @ -none Was there de-escalation of care discussed even if they declined (Discuss DNR or withdrawal of care, Hospice)? DNR status @ -no What co-morbidities impacted this encounter? (DM, HTN, Smoking, COPD, CAD, Cancer, CVA, ARF, Chemo, Hep., AIDS, mental health diagnosis, sleep apnea, morbid obesity)? @ -none Was patient admitted / discharged? Hospital course, mention meds given and route, prescriptions, significant lab abnormalities, going to OR and other pertinent info. @ -58 male to ER for evaluation of hematuria likely underlying cancerous cause follow-up with urology Undiagnosed new problem with uncertain prognosis? @ -no Drug Therapy requiring intensive monitoring for toxicity (Heparin, Nitro, Insulin, Cardizem)? @ -no Were any procedures done? @ -no Diagnosis/symptom? @ -Hematuria Acute, or Chronic, or Acute on Chronic? @ -Acute Uncomplicated (without systemic symptoms) or Complicated (systemic symptoms)? @ -Complicated Side effects of treatment? @ -no Exacerbation, Progression, or Severe Exacerbation? @ -exacerbation Poses a threat to life or bodily function? How? (Chest pain, [place], [place], pneumonia, PE, COPD, DKA, ARF, appy, cholecystitis, CVA, Diverticulitis, Homicidal, Suicidal, threat to staff... and all critical care pts) @ -yes significant cancer with hematuria (Estevan Dean) Medical Decision Making <Francine Henderson - Last Filed: 03/14/24 13:34> - Radiology Data Radiology results: report reviewed (CT abdomen pelvis concern for tumor), image reviewed <Estevan Dean - Last Filed: 03/20/24 23:13> - Medical Decision Making I completed the quick note portion of this chart signed Francine Henderson PA-C (Francine Henderson) 58 male to ER for evaluation of hematuria. No acute findings or cause of hematuria here in the ER patient placed on antibiotics can be discharged home (Estevan Dean) - Lab Data Lab Results 03/14/24 Range/Units 12:50 Urine Color Colorless Urine Appearance Clear (Clear) Urine pH 6.0 (5.0-8.0) Ur Specific [place] 1.007 (1.001-1.035) Urine Protein 1+ H (Negative) Urine Glucose (UA) 3+ H (Negative) Urine Ketones Negative (Negative) Urine Blood Large H (Negative) Urine Nitrite Negative (Negative) Urine Bilirubin Negative (Negative) Urine Urobilinogen <2.0 (<2.0) mg/dL Ur Leukocyte Esterase Negative (Negative) Urine RBC 175 H (0-5) /hpf Urine WBC 3 (0-5) /hpf Ur Squamous Epith Cells <1 (0-4) /hpf Hyaline Casts 1 (0-2) /lpf Disposition <Francine Henderson - Last Filed: 03/14/24 13:34> Is patient prescribed a controlled substance at d/c from ED?: No Time of Disposition: 19:00 <Estevan Dean - Last Filed: 03/20/24 23:13> Clinical Impression: Hematuria, Abdominal pain Disposition: HOME SELF-CARE Condition: Good Instructions (If sedation given, give patient instructions): Hematuria (ED) Prescriptions: Cephalexin [Keflex] 500 mg PO Q6HR #28 cap Referrals: Ravinder Gomez MD [Primary Care Provider] - 1-2 days Samuel Junior MD [STAFF PHYSICIAN] - 1-2 days
[2024-03-14 14:02] LABS: Appearance,Urine Clear (Clear); Bilirubin,Urine Negative (Negative); Blood,Urine Large (Negative); Color,Urine Colorless; Glucose,Urine (UA) 3+ (Negative); Hyaline Casts,Urine 1 /lpf (0-2); Ketones,Urine Negative (Negative); Leukocyte Esterase,Urine Negative (Negative); Nitrite,Urine Negative (Negative); Protein,Urine 1+ (Negative); RBC,Urine 175 /hpf (0-5); Specific Gravity,Urine 1.007 (1.001-1.035); Squamous Epithelial Cell,Urine <1 /hpf (0-4); Urobilinogen,Urine <2.0 mg/dL (<2.0); WBC,Urine 3 /hpf (0-5)
--- NOTE | 2024-03-14 14:39 | CT ---
EXAMINATION TYPE: CT abdomen pelvis wo con DATE OF EXAM: 03/14/2024 2:24 PM COMPARISON: None CLINICAL INDICATION: Male, 58 years old with history of hematuria; Gross hematuria and bladder pain. TECHNIQUE: Axial CT abdomen pelvis wo con;Sagittal and coronal reformats were created on a separate workstation. Contrast used: mL of , (none if empty) Oral contrast used: without Oral Contrast (none if empty) CT DLP: 580.3 mGycm, Automated exposure control for dose reduction was used. FINDINGS: LOWER CHEST: Unremarkable ABDOMEN LIVER: Diffusely hypoattenuating parenchyma. GALLBLADDER AND BILE DUCTS: Layering increased densities within the lumen consistent with gallstones are present. PANCREAS: Unremarkable. SPLEEN: Unremarkable. ADRENAL GLANDS: Unremarkable. KIDNEYS AND URETERS: The right kidney is not visualized. There is mild to moderate left hydroureteron ephrosis. PELVIS BLADDER: Bladder wall thickening most pronounced near the fundus up to 1.6 cm. REPRODUCTIVE: Unremarkable. ABDOMEN & PELVIS STOMACH AND BOWEL: Large hiatal hernia. No evidence of bowel obstruction. The appendix is normal. PERITONEUM/RETROPERITONEUM: No evidence of pneumoperitoneum or free fluid. VASCULATURE: No evidence of aortic aneurysm. Multiple areas of focal dilation up to 20 mm in the infr arenal portion of the aorta. Retroaortic left renal vein. MUSCULOSKELETAL: No acute osseous abnormalities. Moderate disc degeneration changes are present throu ghout the thoracolumbar spine. LYMPH NODES: No gross evidence for lymphadenopathy. SOFT TISSUE/ABDOMINAL WALL: Small fat-containing inguinal hernia. Fat-containing umbilical hernia. IMPRESSION: 1. Urinary bladder wall thickening concerning for transitional cell carcinoma further evaluation wit h cystoscopy recommended.. 2. Moderate left hydroureteronephrosis without obstructing calculus visualized. Further evaluation o f the ostium of the left ureter recommended with cystoscopy to rule out urothelial mass. 3. Large hiatal hernia. 4. Absent right kidney, favoring congenital finding, correlate with history of surgery. 5. Cholelithiasis. 6. Ectasia of the infrarenal abdominal aorta. 7. Hepatic steatosis. [facility], , 03/14/2024 2:36 PM
[2024-03-14] MEDS: CEPHALEXIN 500 MG CAP PO STA (19:00)
[2024-03-14] MEDS: SODIUM CHLORIDE 0.9% 1,000 ML IV STA ×2 (19:02)
[2024-03-14] MEDS: CEPHALEXIN 500MG STARTER PACK 4 CAP BTL PO STA (19:02)
[2024-03-14 19:08] VITALS: BP 136/87; PULSE 76; RESP 19; TEMP 98.8
== END 2024-03-14 19:07 | disposition home or self-care (01) ==
LOC: EC 12:23
DX: K80.20 Calculus of gallbladder without cholecystitis without obstruction (principal); K44.9 Diaphragmatic hernia without obstruction or gangrene; K76.0 Fatty (change of) liver, not elsewhere classified; F17.200 Nicotine dependence, unspecified, uncomplicated; Z88.0 Allergy status to penicillin
CPT/HCPCS: 74176; 81001; 99284

== ENCOUNTER 2024-03-28 10:42 | Day surgery (SDC) | payer OTHER ==
--- NOTE | 2024-03-27 19:45 | P.GSHP ---
History of Present Illness H&P Date: 03/27/24 Chief Complaint: Bladder Tumor The patient is a 58-year-old male who recently experienced gross hematuria. He reports a weak urinary stream and voids every 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 Mild to moderate left hydroureteronephrosis was noted, associated with bladder wall thickening. Urine cytology shows cells suspicious for high-grade urothelial carcinoma, and cystoscopy shows diffuse bladder tumors. A Mari catheter was placed for urinary retention, but the patient was placed on tamsulosin and the catheter has since been removed. He now comes for bladder tumor resection. 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 - Cardiovascular Cardiovascular: Reports high blood pressure - Genitourinary (Male) Genitourinary: Reports hematuria, Reports urinary frequency Past Medical History Past Medical History: Diabetes Mellitus, GERD/Reflux, Hyperlipidemia, Hypertension, Musculoskeletal Disorder Additional Past Medical History / Comment(s): LOWER BACK PAIN W/2 BULDGING DISCS, HAS ONLY 1 KIDNEY (LEFT), History of Any Multi-Drug Resistant Organisms: None Reported Past Surgical History: No Surgical Hx Reported Additional Past Surgical History / Comment(s): pain clinic proc Additional Past Anesthesia/Blood Transfusion Reaction / Comment(s): PT HAS NEVER RECEIVED ANESTHESIA. Smoking Status: Current every day smoker - Past Family History Father Family Medical History: Cancer Additional Family Medical History / Comment(s): MELANOMA Medications and Allergies Home Medications Medication Instructions Recorded Confirmed Type Cyclobenzaprine [Flexeril] 10 mg PO HS 12/11/14 03/24/24 History HYDROcodone/APAP 7.5-325MG [[place] 1 tab PO BID PRN 12/11/14 03/24/24 History 7.5-325] Omeprazole [PriLOSEC] 20 mg PO BID 12/11/14 03/24/24 History amLODIPine [Norvasc] 10 mg PO DAILY 12/11/14 03/24/24 History Atorvastatin [Lipitor] 40 mg PO DAILY 03/14/24 03/24/24 History DULoxetine HCL [Cymbalta] 60 mg PO DAILY 03/14/24 03/24/24 History Dulaglutide [Trulicity] 3 mg SQ WE 03/14/24 03/24/24 History Empagliflozin [Jardiance] 25 mg PO DAILY 03/14/24 03/24/24 History Losartan/Hydrochlorothiazide 1 tab PO DAILY 03/14/24 03/24/24 History [Losartan-Hctz 100-12.5 mg Tab] Metoprolol Succinate (ER) [Toprol 100 mg PO DAILY 03/14/24 03/24/24 History XL] Pregabalin [Lyrica] 150 mg PO TID 03/14/24 03/24/24 History metFORMIN HCL [Glucophage] 500 mg PO BID 03/14/24 03/24/24 History rOPINIRole HCL [Requip] 0.5 mg PO HS 03/14/24 03/24/24 History Allergies Allergy/AdvReac Type Severity Reaction Status Date / Time Penicillins AdvReac Severe Swelling Verified 03/24/24 10:36 Surgical - Exam - General well developed, well nourished, no distress - Respiratory normal respiratory effort - Abdomen Abdomen: soft, non tender, no guarding, no rigid, no rebound - Genitourinary normal penis with no external lesions, testicles non-tender - Psychiatric oriented to time, oriented to person, oriented to place, speech is normal, memory intact Results - Imaging CT scan - abdomen: report reviewed, image reviewed Assessment and Plan (1) Neoplasm of unspecified behavior of bladder Status: Acute Code(s): D49.4 - NEOPLASM OF UNSPECIFIED BEHAVIOR OF BLADDER SNOMED Code(s): 645931793 Plan: Cystoscopy, transurethral resection of bladder tumor. The procedure has been reviewed in detail with the patient. He has been made aware of potential risks, which include anesthesia, bleeding, infection, and bladder perforation.
[2024-03-28] MEDS ORDERED: LACTATED RINGERS 1,000 ML IV SCH (11:03)
[2024-03-28] MEDS ORDERED: LIDOCAINE 1% (10MG/ML) FOR IV START INTRADERMA PRN (11:03)
[2024-03-28] MEDS ORDERED: fentaNYL (PF) 50 MCG/ML 2 ML AMP IVP PRN (11:03)
[2024-03-28] MEDS ORDERED: MIDAZOLAM 2 MG/2 ML VIAL IV PRN (11:03)
[2024-03-28 11:36] LABS: Glucose,Whole Blood 139 mg/dL (70-110)
[2024-03-28] MEDS: DEXAMETHASONE SOD PHOSPHATE 4 MG/ML 1 ML VIAL IV ONE (11:37)
[2024-03-28] MEDS: ONDANSETRON 4 MG/2 ML VIAL IVP ONE (11:37)
[2024-03-28] MEDS: IV FLUID CONTINUATION 1,000 ML IV ONE (11:40)
[2024-03-28] MEDS: IPRATROPIUM-ALBUTEROL 3 ML NEB INHALATION STA (11:49)
[2024-03-28] MEDS ORDERED: ePHEDrine 50 MG/ML 1 ML VIAL ONE (12:41)
[2024-03-28] MEDS ORDERED: LIDOCAINE 1% INJ 10MG/ML (20 ML MDV) ONE (12:41)
[2024-03-28] MEDS ORDERED: NEOSTIGMINE 1 MG/ML 10 ML VIAL ONE (12:41)
[2024-03-28] MEDS ORDERED: GLYCOPYRROLATE 0.2 MG/ML 2 ML VIAL ONE (12:41)
[2024-03-28] MEDS ORDERED: PHENYLEPHRINE-0.9% NACL SYG 1,000 MCG/10 ML SYRINGE ONE (12:41)
[2024-03-28] MEDS ORDERED: fentaNYL (PF) 50 MCG/ML 2 ML AMP ONE (12:41)
[2024-03-28] MEDS ORDERED: ROCURONIUM 10 MG/ML (5 ML VIAL) IV ONE (12:41)
[2024-03-28] MEDS ORDERED: MIDAZOLAM 2 MG/2 ML VIAL ONE (12:41)
[2024-03-28] MEDS ORDERED: SUCCINYLCHOLINE CHLORIDE 200 MG/10 ML VIAL IV ONE (12:41)
[2024-03-28] MEDS ORDERED: PROPOFOL 10 MG/ML 20 ML VIAL IV ONE (12:41)
--- NOTE | 2024-03-28 13:42 | FL ---
EXAMINATION TYPE: FL guidance operating room DATE OF EXAM: 03/28/2024 1:37 PM COMPARISON: Pre Operative Images if available both CT/MRI or plain film CLINICAL INDICATION: Male, 58 years old with history of Cysto for bladder resection; TECHNIQUE: FL guidance operating room, multiple fluoroscopic images provided for procedure. Total fluoroscopy time: 26.5 seconds Total submitted images to PACS: 13 DAP: [id number] mGym2 Gycm2 uGym2 cGycm2 or equivalent. FINDINGS: Fluoroscopic images during retrograde pyelogram demonstrate contrast in the renal collecting system. There is dilation of the collecting system. No evidence of extravasation of contrast. No immediate co mplication identified. Filling defect within the left mid ureter possibly representing calculus. IMPRESSION: 1. No evidence for intraoperative complication. 2. Please see the operative/procedural note for further details. [facility], , 03/28/2024 1:40 PM
[2024-03-28 14:27] LABS: Glucose,Whole Blood 157 mg/dL (70-110)
--- NOTE | 2024-03-28 14:35 | P.OP ---
Date of Procedure: 03/28/24 Preoperative Diagnosis: Gross hematuria, bladder tumors, left hydronephrosis Postoperative Diagnosis: Same Procedure(s) Performed: Cystoscopy, TURBT (medium), bladder biopsies, left retrograde pyelogram Anesthesia: HERBIEA Surgeon: Samuel Junior Estimated Blood Loss (ml): 20 IV fluids (ml): 700 Pathology: other (Bladder biopsies) Condition: stable Disposition: PACU Indications for Procedure: The patient is a 58-year-old male who recently experienced gross hematuria. He reports a weak urinary stream and voids every 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 Mild to moderate left hydroureteronephrosis was noted, associated with bladder wall thickening. Urine cytology shows cells suspicious for high-grade urothelial carcinoma, and cystoscopy shows diffuse bladder tumors. A Mari catheter was placed for urinary retention, but the patient was placed on tamsulosin and the catheter has since been removed. He now comes for bladder tumor resection. 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 Operative Findings: Diffuse superficial tumor (probable CIS) involving the left lateral bladder wall, bladder dome, posterior bladder wall, and right lateral bladder wall. T here does not appear to be involvement of the prostatic urethra. Left retrograde pyelogram shows hydroureteronephrosis down to the UVJ, without filling defects. Description of Procedure: The patient was taken in the operating room and placed in the dorsal lithotomy position, with his legs supported in Charly stirrups. The external genitalia was prepped and draped sterilely. The [place] urethrotome was used to incise the urethra to 25-[place]. The 25-Tu[place] ACMI resectoscope sheath was introduced into the bladder. The bladder was inspected. The entire bladder was examined, revealing diffuse superficial tumor involving the right lateral bladder wall, left lateral bladder wall, bladder dome, and posterior bladder wall. The left ureteral orifice appeared normal, and clear urine effluxed from it. The right ureteral orifice was absent. The prostate was partially obstructed with a bilobar configuration. No urothelial changes were seen within the prostatic urethra. The resectoscope was removed, and the 22 [place] start cystoscopic sheath was passed into the bladder under direct vision. Using a 10 [place] cone-tip catheter, a left retrograde pyelogram was performed. The left ureter was dilated in its entirety, and there was evidence of moderate hydronephrosis. No filling defects were seen. Contrast was then observed draining into the bladder, unimpeded. Next, the cold cup biopsy forceps were used to obtain biopsies from the left lateral bladder wall, right lateral bladder wall, bladder dome, and posterior bladder wall. The 8 [place] Bugbee electrode was used to fulgurate each of the biopsy sites. The resectoscope was replaced into the bladder under direct vision. Using the bipolar cutting loop, the superficial tumors at the bladder dome were resected down to the superficial muscle. It was in no way possible to do a complete resection. This tissue was saved and sent along with the bladder dome biopsy. The resection bed was fulgurated. There was no evidence of bladder perforation. The resectoscope was then used to obtain a prostatic urethral biopsy from the right posterior prostatic urethra. This resection bed was also fulgurated. After ensuring excellent hemostasis, the resectoscope was removed and an 18- [place] Mari catheter was inserted. The return was clear. The patient tolerated the procedure well and was taken to the recovery room in stable condition.
[2024-03-28 14:38] VITALS: TEMP 97.4
[2024-03-28] MEDS: HYDROmorphone 0.5 MG/0.5 ML SYRINGE IVP PRN (15:12)
[2024-03-28] MEDS: SODIUM CHLORIDE 0.9% 250 ML IV ONE (16:17)
[2024-03-28 16:36] VITALS: BP 106/67; PULSE 79; RESP 18
== END 2024-03-28 17:02 | disposition home or self-care (01) ==
LOC: OR 10:42
PROVIDERS: ATTEND Urology
DX: C67.9 Malignant neoplasm of bladder, unspecified (principal); N13.30 Unspecified hydronephrosis; K21.9 Gastro-esophageal reflux disease without esophagitis; I10 Essential (primary) hypertension; E78.5 Hyperlipidemia, unspecified; E11.9 Type 2 diabetes mellitus without complications; F17.210 Nicotine dependence, cigarettes, uncomplicated; F10.99 Alcohol use, unspecified with unspecified alcohol-induced disorder; N28.9 Disorder of kidney and ureter, unspecified; Z79.84 Long term (current) use of oral hypoglycemic drugs; Z88.0 Allergy status to penicillin; Z79.899 Other long term (current) drug therapy
CPT/HCPCS: 88305; 88342; 88307; 74420; 52204; 52354; J2250; J0330; J1100; J2710; J0690; J2405; J2003; J3010; J2704; J1171; J2371; J1596

== ENCOUNTER → 2024-04-06 | Outpatient (CLI) | payer OTHER ==
--- NOTE | 2024-04-06 16:16 | US ---
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 TECHNIQUE: Grayscale imaging of the bilateral kidneys and urinary bladder: FINDINGS: EXAM MEASUREMENTS: Left Kidney: 12.3 x 5.4 x 4.6 cm Right Kidney: Congenitally absent. Left Kidney: Anechoic area mid pole 2.4 x 2.3 x 2.5 cm Bladder: Cather in Bilateral Jets seen: no When scanning right renal fossa adjacent liver is heterogeneously hyperechoic. Findings are consisten t with diffuse fatty infiltrative hepatocellular disease. Mari catheter is in bladder making evaluat ion suboptimal. There is exophytic 2.4 cm simple appearing thin-walled cyst in the left kidney redemo nstrated. Left-sided hydronephrosis is improved from recent CT. IMPRESSION: Resolved prior visualized left-sided hydronephrosis. [facility], , 04/06/2024 4:14 PM
== END | disposition home or self-care (01) ==
LOC: RADUSWWP 13:21
PROVIDERS: ATTEND Urology
DX: N13.30 Unspecified hydronephrosis (principal)
CPT/HCPCS: 76770

== ENCOUNTER → 2024-08-28 | Outpatient (CLI) | payer OTHER ==
[2024-08-28 16:28] LABS: Basophils # (A) 0.08 X 10*3/uL (0.00-0.10); Eosinophils # (A) 0.23 X 10*3/uL (0.04-0.35); Eosinophils % (A) 2.9 %; HCT 38.2 % (39.6-50.0); HGB 11.9 g/dL (13.0-17.0); Lymphocytes # (A) 2.45 X 10*3/uL (0.90-5.00); Lymphocytes % (A) 31.1 %; MCH 25.4 pg (27.0-32.0); MCHC 31.2 g/dL (32.0-37.0); MCV 81.4 FL (80.0-97.0); Monocytes # (A) 0.63 X 10*3/uL (0.20-1.00); NRBC Per 100 WBC 0 X 10*3/uL (0.00-0.01); Neutrophils # (A) 4.48 X 10*3/uL (1.80-7.70); Neutrophils % (A) 56.7 %; Platelet Count 199 X 10*3/uL (140-440); RBC 4.69 X 10*6/uL (4.40-5.60); RDW 16.4 % (11.5-14.5); WBC 7.89 X 10*3/uL (4.50-10.00)
[2024-08-28 16:29] LABS: BUN/Creat Ratio 10.79 Ratio (12.00-20.00); Blood Urea Nitrogen 15.1 mg/dL (9.0-27.0); Calcium 9.4 mg/dL (8.7-10.3); Carbon Dioxide 24.5 mmol/L (21.6-31.8); Chloride 104 mmol/L (96-109); Glucose 167 mg/dL (70-110); Potassium 4.2 mmol/L (3.5-5.5); Sodium 140 mmol/L (135-145)
== END | disposition home or self-care (01) ==
LOC: LABWHC1 11:14
PROVIDERS: ATTEND Urology
DX: Z01.812 Encounter for preprocedural laboratory examination (principal); C67.9 Malignant neoplasm of bladder, unspecified
CPT/HCPCS: 36415; 80048; 85025; 87086